=== PATIENT | male | born 1950 | race African-American/Black ===

== ENCOUNTER → 2019-08-13 | Outpatient (CLI) | payer MEDICARE | END | disposition home or self-care (01) | LOC: CARD 08:14 | PROVIDERS: ATTEND Psychiatry & Neurology Neurology | DX: R41.3 Other amnesia (principal); I69.911 Memory deficit following unspecified cerebrovascular disease ==

== ENCOUNTER 2020-04-04 19:22 | Emergency (ER) | payer MEDICARE, OTHER ==
[~2020-04-04] VITALS: Ht 172.7 cm; Wt 93.0 kg
[2020-04-04] MEDS ORDERED: HYDROCODONE/ACETAMINOPHEN 10/325MG TABLET PO ONE (20:15)
[2020-04-04] MEDS ORDERED: ONDANSETRON 4MG ODT PO ONE (20:15)
[2020-04-04] MEDS ORDERED: LIDOCAINE 5% PATCH TOP NR (20:22)
[2020-04-04 21:43] VITALS: BP 142/100
== END 2020-04-05 00:17 | disposition home or self-care (01) ==
LOC: ER 19:22
DX: M54.5 Low back pain (principal); K21.9 Gastro-esophageal reflux disease without esophagitis; I10 Essential (primary) hypertension; Z86.73 Personal history of transient ischemic attack (TIA), and cerebral infarction without residual deficits; Z98.890 Other specified postprocedural states
CPT/HCPCS: 72131; 72192; 99284; Q0162

== ENCOUNTER 2024-06-19 17:20 | Emergency (ER) | payer MEDICARE ==
[~2024-06-19] VITALS: Ht 162.6 cm; Wt 75.0 kg
[~2024-06-19 17:20] MED LIST: AMLO10TA80 MT
[2024-06-19 17:26] VITALS: TEMP 98.4; O2SAT 97
[2024-06-19 18:05] LABS: HEMATOCRIT. 37.8 % (42.0-52.0); MEAN CORPUSCULAR HEMOGLOBIN 28.2 pg (28.0-32.0); MEAN CORPUSCULAR HGB CONC 31.7 g/dL (31.0-37.0); MEAN CORPUSCULAR VOLUME 88.9 fL (80.0-94.0); MEAN PLATELET VOLUME 7.8 fl (7.4-10.4); PLATELET 215 x1000/uL (130-400); RED BLOOD CELL COUNT 4.25 mill/uL (4.7-6.1); RED CELL DISTRIBUTION WIDTH 17.2 % (11.6-14.6); WHITE BLOOD COUNT 8.5 x1000/uL (4.5-11.0)
[2024-06-19 18:12] LABS: CHLORIDE 104 mEq/L (98-107); POTASSIUM 3.8 mEq/L (3.5-5.1); SODIUM 137 mEq/L (136-145)
[2024-06-19 18:13] LABS: CARBON DIOXIDE 27 mEq/L (21-32)
[2024-06-19 18:18] LABS: CREATININE 1.2 mg/dL (0.6-1.3)
[2024-06-19 18:19] LABS: GLUCOSE 123 mg/dL (70-105); TROPONIN I HIGH SENSITIVITY 8 ng/L (3.0-53); UREA NITROGEN BLOOD 17 mg/dL (9-23)
[2024-06-19 18:20] LABS: ACETAMINOPHEN < 2 ug/mL (10-30); AMMONIA < 17 uMol/L (<32); CREATINE KINASE 259 IU/L (46-171); DIFFERENTIAL COMMENT 1; LACTIC ACID 2.8 mmol/L (0.4-2.0)
[2024-06-19 18:21] LABS: ETHANOL BLOOD < 10 mg/dL (<10)
[2024-06-19 18:23] LABS: THYROID STIMULATING HORMONE 0.48 uIU/mL (0.55-4.78)
[2024-06-19] MEDS: SODIUM CHLORIDE 0.9% 1,000 ML IV ONE (18:29)
[2024-06-19 18:45] LABS: PLATELET ESTIMATE NORMAL
[2024-06-19 20:05] VITALS: BP 126/76; PULSE 95; RESP 18
== END 2024-06-19 21:15 | disposition home or self-care (01) ==
LOC: ER 17:20
DX: E87.20 Acidosis, unspecified (principal); R51.9 Headache, unspecified; I10 Essential (primary) hypertension; Z90.49 Acquired absence of other specified parts of digestive tract; Z86.73 Personal history of transient ischemic attack (TIA), and cerebral infarction without residual deficits
CPT/HCPCS: 80048; 80307; 80329; 80320; 82140; 82550; 83605; 84443; 85025; 87040; 84484; 36415; 84145; 71045; 70450; 93005; 96360; 96361; 99285; J7030; G0480